=== PATIENT | female | born 1945 | race Caucasian/White ===

== ENCOUNTER 2021-06-20 07:57 | Emergency (ER) | payer MEDICARE ==
[~2021-06-20] VITALS: Ht 167.6 cm; Wt 109.7 kg
--- NOTE | 2021-06-20 08:24 | PHYS DOC ---
General Adult EDM: Chief Complaint: CHEST PAIN HPI: HPI: Patient is a 76 year old female with past medical history of hypertension and hyperlipedmia presents for evaluation of chest pressure. Patient states her chest pressure is NOT chest pain. States that pressure has been constant since 1700 hrs. yesterday. It is located in the middle of her chest with radiation to her left arm. Patient denies any associated nausea or diaphoresis. She states she has an occasional shortness of breath. She states he abdomen feels full. Over the last several weeks patient has had episodes of palpitations. Patient states she feels her heart pounding first few seconds then resolves. Over the last several weeks episodes have become more frequent. Last episode was this weekend. Patient has been evaluated by her mortgage branch manager for her palpitations and was placed on a Holter monitor. Patient arrived via EMS. She was treated with 4 tablets aspirin 81 mg. Review of Systems: Review of Systems: Constitutional: Denies fever or chills. [] Eyes: Denies change in visual acuity. [] HENT: Denies nasal congestion or sore throat. [] Respiratory: Denies cough or shortness of breath. [] Cardiovascular: Denies chest pain or edema. [positive chest pressure] GI: Denies abdominal pain, , vomiting, bloody stools or diarrhea. [positive nausea] : Denies dysuria. [] Musculoskeletal: Denies back pain or joint pain. [] Integument: Denies rash. [] Neurologic: Denies headache, focal weakness or sensory changes. [] Endocrine: Denies polyuria or polydipsia. [] Lymphatic: Denies swollen glands. [] Psychiatric: Denies depression or anxiety. [] Heart Score: C/O Chest Pain: Yes HEART Score for Chest Pain: HEART Score for Chest Pain Response (Comments) Value History Slighlty/Non-Suspicious 0 ECG Normal 0 Age > 65 2 Risk Factors 1 or 2 Risk Factors 1 Troponin < Normal Limit 0 Total 3 Risk Factors: Risk Factors: DM, Current or recent (<one month) smoker, HTN, HLP, family history of CAD, obesity. Risk Scores: Score 0 - 3: 2.5% MACE over next 6 weeks - Discharge Home Score 4 - 6: 20.3% MACE over next 6 weeks - Admit for Clinical Observation Score 7 - 10: 72.7% MACE over next 6 weeks - Early Invasive Strategies Allergies: Allergies: Allergies Coded Allergies Type Severity Reaction Last Updated Verified azithromycin Allergy Intermediate 06/20/21 Yes Physical Exam: PE: Constitutional: Well developed, well nourished, no acute distress, non-toxic appearance. [] HENT: Normocephalic, atraumatic, bilateral external ears normal, oropharynx moist, no oral exudates, nose normal. [] Eyes: PERRLA, EOMI, conjunctiva normal, no discharge. [] Neck: Normal range of motion, no tenderness, supple, no stridor. [] Cardiovascular:Heart rate regular rhythm, no murmur [] Lungs & Thorax: Bilateral breath sounds clear to auscultation [] Abdomen: Bowel sounds normal, soft, no tenderness, no masses, no pulsatile masses. [] Skin: Warm, dry, no erythema, no rash. [] Back: No tenderness, no CVA tenderness. [] Extremities: No tenderness, no cyanosis, no clubbing, ROM intact, no edema. [] Neurologic: Alert and oriented X 3, normal motor function, normal sensory function, no focal deficits noted. [] Psychologic: Affect normal, judgement normal, mood normal. [] EKG: EKG: [] Performed at 0804 Rate 74 sinus rhythm Left anterior fascicular block No ST elevation No ST depression No acute ME Radiology/Procedures: Radiology/Procedures: [] Impression: XR CHEST 1V History: Reason: chest pain / Spl. Instructions: / History: Comparison: None. Findings: Mild patchy bibasilar opacities. No pleural effusion. No pneumothorax. Normal heart size. Left glenohumeral DJD. Impression: 1. Mild patchy bibasilar opacities, may represent atelectasis. If persistent clinical concern, recommend follow-up. Course & Med Decision Making: Course & Med Decision Making Pertinent Labs and Imaging studies reviewed. (See chart for details) [] Patient was evaluated for chief complaint. Work-up consisted of laboratory analysis, radiologic imaging, and EKG. Results reviewed and discussed with patient and family. Patient with palpitations and chest pressure of for the last several days. Patient has been evaluated by purchasing clerk and has a Holter monitor in place. EKG without acute ischemic changes chest x-ray likely atelectasis Labs without acute abnormalities. Discussed hospitalization for further evaluation and treatment. Patient would prefer to be discharged and to follow-up with her mortgage branch manager. Irving Disclaimer: Irving Disclaimer: This electronic medical record was generated, in whole or in part, using a voice recognition dictation system. Departure Departure Impression: Primary Impression: Chest pressure Disposition: 01 HOME / SELF CARE / HOMELESS Condition: STABLE Patient Instructions: Chest Pain (Nonspecific) MARIEL MOSCOSO DO Jun 20, 2021 08:24
--- NOTE | 2021-06-20 08:58 | RAD ---
XR CHEST 1V History: Reason: chest pain / Spl. Instructions: / History: Comparison: None. Findings: Mild patchy bibasilar opacities. No pleural effusion. No pneumothorax. Normal heart size. Left glenoh umeral DJD. Impression: 1. Mild patchy bibasilar opacities, may represent atelectasis. If persistent clinical concern, recom mend follow-up. Electronically signed by: Marcelo Haynes DO (06/20/2021 8:55 AM) [id number]
[2021-06-20 09:09] LABS: BASO % 1 % (0-3); EOS # 0.1 x10^3/uL (0.0-0.7); EOS % 2 % (0-3); HEMATOCRIT 42.4 % (36.0-47.0); LYMPH % 21 % (24-48); MEAN CORPUSCULAR HEMOGLOBIN 31 pg (25-35); MEAN CORPUSCULAR HGB CONC 33 g/dL (31-37); MEAN CORPUSCULAR VOLUME 92 fL (79-100); MONO # 0.3 x10^3/uL (0.0-1.1); MONO % 7 % (0-9); NEUT # 3.1 x10^3/uL (1.8-7.7); NEUT % 69 % (31-73); PLATELET COUNT 151 x10^3/uL (140-400); RED CELL DISTRIBUTION WIDTH 13.6 % (11.5-14.5); WHITE BLOOD COUNT 4.6 x10^3/uL (4.0-11.0)
[2021-06-20 09:24] LABS: CREATININE 0.9 mg/dL (0.6-1.0); GFR 60.9; POTASSIUM 4.2 mmol/L (3.5-5.1)
[2021-06-20 09:30] LABS: ALBUMIN 3.7 g/dL (3.4-5.0); ALBUMIN/GLOBULIN RATIO 1.2 (1.0-1.7); TOTAL BILIRUBIN 0.5 mg/dL (0.2-1.0); TOTAL PROTEIN 6.9 g/dL (6.4-8.2)
[2021-06-20 10:07] VITALS: BP 176/69
--- NOTE | 2021-06-20 17:48 | EKG ---
[facility] [address] [place] [address] Test Date: 2021-06-20 Test Time: 08:04:39 Pat Name: SOLE MISHRA Department: Room: Gender: F Healthcare Facility Administrator: : 1945 Requested By: MARIEL MOSCOSO Order Number: [id number] Reading MD: Measurements Intervals [place] Rate: 74 P: 95 CT: 198 QRS: -34 QRSD: 102 T: 84 QT: 378 QTc: 420 Interpretive Statements SINUS RHYTHM ABNORMAL LEFT AXIS DEVIATION LEFT ANTERIOR FASCICULAR BLOCK QRS(T) CONTOUR ABNORMALITY CONSISTENT WITH ANTEROSEPTAL INFARCT PROBABLY OLD ST & T ABNORMALITY, CONSIDER INFERIOR ISCHEMIA OR LEFT VENTRICULAR STRAIN ABNORMAL ECG RI6.02 No previous ECG available for comparison
== END 2021-06-20 10:45 | disposition home or self-care (01) ==
LOC: ER 07:57
DX: R07.89 Other chest pain (principal); R06.02 Shortness of breath; R00.2 Palpitations; I10 Essential (primary) hypertension; Z88.1 Allergy status to other antibiotic agents
CPT/HCPCS: 36415; 71045; 80053; 83880; 84484; 85025; 93005; 99285-25